=== PATIENT | male | born 1985 | race Two or more races ===

== ENCOUNTER → 2021-01-09 | Emergency (ER) | payer MEDICAID ==
[~2021-01-09] VITALS: Ht 180.3 cm; Wt 95.3 kg
[2021-01-09 04:09] VITALS: BP 131/80
== END | disposition left against medical advice (07) ==
LOC: ER 04:09
DX: R51.9 Headache, unspecified (principal); Z53.21 Procedure and treatment not carried out due to patient leaving prior to being seen by health care provider